=== PATIENT | female | born 1945 | race Caucasian/White ===

== ENCOUNTER 2025-09-14 06:12 | Inpatient (IN) ==
[2025-09-04 11:11] LABS: Basophils # (Auto) 0.02 K/mcL (0.00-0.30); Basophils % (Auto) 0.3 % (0.0-2.0); Eosinophils # (Auto) 0.10 K/mcL (0.00-0.70); Eosinophils % (Auto) 1.5 % (0.0-7.0); Hematocrit 29.3 % (34.1-44.9); Hemoglobin 9.5 g/dL (11.2-15.7); Lymphocytes # (Auto) 1.18 K/mcL (1.50-4.80); Lymphocytes % (Auto) 18.0 % (15.5-49.0); Mean Corpuscular HGB Conc 32.4 g/dL (31.0-36.0); Monocytes # (Auto) 0.83 K/mcL (0.10-0.90); Monocytes % (Auto) 12.7 % (1.0-12.0); Neutrophils % (Auto) 65.7 % (38.0-78.0); Platelet Count 305 K/mcL (140-440); RBC 2.94 M/mcL (3.59-5.38); WBC 6.6 K/mcL (4.5-11.0)
[2025-09-04 11:41] LABS: ALT/SGPT 17 U/L (<40); AST/SGOT 38 U/L (<32); Albumin 3.4 gm/dL (3.2-5.2); Albumin/Globulin Ratio 1.3 (1.0-2.3); Alkaline Phosphatase 129 U/L (39-117); Anion Gap 13.0 (8.0-16.0); Bilirubin,Total 0.2 mg/dL (0.1-1.0); Blood Urea Nitrogen 18 mg/dL (8-23); Calcium 8.9 mg/dL (8.6-10.4); Carbon Dioxide 21 mmol/L (22-30); Chloride 99 mmol/L (96-108); Globulin 2.6 gm/dL (2.2-3.7); Glucose 85 mg/dL (70-105); Potassium 3.6 mmol/L (3.3-5.1); Sodium 133 mmol/L (133-145)
[2025-09-04 12:00] LABS: INR 1.0 (0.9-1.1); Prothrombin Time 13.9 sec (11.9-14.5)
[2025-09-04 12:43] LABS: Estimated Average Glucose(eAG) 117 mg/dL; Hemoglobin A1C 5.7 % Hgb (4.0-6.0)
[2025-09-04 16:39] LABS: Bacteria,Urine FEW /hpf (0); Bilirubin,Urine Negative (Negative); Calcium Oxalate Crystals,Urine MOD /hpf; Color,Urine AMBER; Glucose,Urine (UA) Negative (Negative); Ketones,Urine 5 mg/dL (Negative); Leukocyte Esterase,Urine 500 /uL (Negative); Mucus,Urine MANY /hpf; PH,Urine 5.0 (5.0-9.0); Protein,Urine 30 mg/dL (Negative); Specific Gravity,Urine 1.019 (1.000-1.035); Urobilinogen,Urine Negative
[2025-09-14] MEDS: ACETAMINOPHEN 500 MG TABLET PO SCH (06:44)
[2025-09-14] MEDS: GABAPENTIN 300 MG CAPSULE PO SCH ×2 (06:44→15:41)
[2025-09-14] MEDS: oxyCODONE 10 MG TAB.ER.12H PO SCH (06:44)
[2025-09-14] MEDS ORDERED: METOCLOPRAMIDE 10 MG/2 ML VIAL ONE (06:56)
[2025-09-14] MEDS ORDERED: LIDOCAINE 2% PF 5 ML VIAL ONE (06:56)
[2025-09-14] MEDS ORDERED: BUPIVACAINE PF 0.5% 10 ML VIAL ONE ×2 (06:56→08:28)
[2025-09-14] MEDS ORDERED: ONDANSETRON 4 MG/2 ML VIAL ONE (06:56)
[2025-09-14] MEDS ORDERED: DEXAMETHASONE 10 MG/ML VIAL ONE (06:56)
[2025-09-14] MEDS ORDERED: GLYCOPYRROLATE 0.2 MG/ML VIAL IV ONE (06:56)
[2025-09-14] MEDS ORDERED: TRANEXAMIC ACID 1,000 MG/10 ML VIAL ONE (06:56)
[2025-09-14] MEDS ORDERED: FAMOTIDINE/PF 20 MG/2 ML VIAL IV ONE (06:58)
[2025-09-14] MEDS ORDERED: MIDAZOLAM 2 MG/2 ML VIAL ONE (06:59)
[2025-09-14] MEDS ORDERED: PROPOFOL 200 MG/20 ML VIAL IV ONE (06:59)
[2025-09-14] MEDS: ceFAZolin 2 GM in DEXTROSE 5% IN WATER 50 ML IV SCH (07:12)
[2025-09-14] MEDS ORDERED: IPRATROPIUM/ALBUTEROL 3 ML AMPUL.NEB NEB PRN (08:04)
[2025-09-14] MEDS ORDERED: ONDANSETRON 4 MG/2 ML VIAL IV PRN ×2 (08:04→09:16)
[2025-09-14 08:24] LABS: Basophils # (Auto) 0.01 K/mcL (0.00-0.30); Basophils % (Auto) 0.3 % (0.0-2.0); Eosinophils # (Auto) 0.05 K/mcL (0.00-0.70); Eosinophils % (Auto) 1.5 % (0.0-7.0); Hematocrit 25.0 % (34.1-44.9); Hemoglobin 8.2 g/dL (11.2-15.7); Lymphocytes # (Auto) 0.87 K/mcL (1.50-4.80); Lymphocytes % (Auto) 25.3 % (15.5-49.0); Mean Corpuscular HGB Conc 32.8 g/dL (31.0-36.0); Monocytes # (Auto) 0.52 K/mcL (0.10-0.90); Monocytes % (Auto) 15.1 % (1.0-12.0); Neutrophils % (Auto) 57.5 % (38.0-78.0); Platelet Count 340 K/mcL (140-440); RBC 2.52 M/mcL (3.59-5.38); WBC 3.4 K/mcL (4.5-11.0)
[2025-09-14] MEDS ORDERED: BUPIVACAINE LIPOSOMAL 1.3% 10 ML VIAL IJ ONE (08:28)
[2025-09-14] MEDS: 0.9 % SODIUM CHLORIDE 9 ML, KETOROLAC 30 MG, ROPIVACAINE HCL/PF 49.5 ML, EPINEPHrine 0.... IJ SCH (09:00)
[2025-09-14] MEDS ORDERED: BENZOCAINE/MENTHOL 1 LOZENGE PO PRN (09:16)
[2025-09-14] MEDS ORDERED: TEMAZEPAM 15 MG CAPSULE PO PRN (09:16)
[2025-09-14] MEDS ORDERED: MAGNESIUM HYDROXIDE 30 ML ORAL.SUSP PO PRN (09:16)
[2025-09-14] MEDS: TRANEXAMIC ACID 1,000 MG/10 ML VIAL IV ONE (09:42)
[2025-09-14] MEDS ORDERED: ACETAMINOPHEN 325 MG TABLET PO PRN (13:00)
[2025-09-14] MEDS: 0.9 % SODIUM CHLORIDE 10 ML SYRINGE IV SCH (14:07)
[2025-09-14] MEDS: 0.9 % SODIUM CHLORIDE 1,000 ML IV SCH (15:40)
[2025-09-14] MEDS: ASPIRIN 81 MG TAB.CHEW CHEWED SCH (20:32)
[2025-09-14] MEDS: DOCUSATE SODIUM 100 MG CAPSULE PO SCH (20:32)
[2025-09-15] MEDS: LACTATED RINGERS 1,000 ML IV SCH (06:44)
[2025-09-15] MEDS: OMEPRAZOLE 20 MG CAPSULE PO SCH (07:40)
[2025-09-15] MEDS: LEVOTHYROXINE 50 MCG TABLET PO SCH (07:40)
[2025-09-15] MEDS: LISINOPRIL 20 MG TABLET PO SCH (08:07)
[2025-09-15] MEDS: SERTRALINE 25 MG TABLET PO SCH (08:08)
[2025-09-15] MEDS: SERTRALINE 50 MG TABLET PO SCH (09:50)
[2025-09-15] MEDS: HYDROcodone/APAP 10/325MG TABLET PO PRN (11:21)
[2025-09-17 11:59] VITALS: TEMP 98.1; O2SAT 99
== END 2025-09-17 13:22 | DRG 470 ==
LOC: SUR 06:12 → MEDSUR 10:14
PROVIDERS: ADMIT Orthopaedic Surgery; ATTEND Orthopaedic Surgery